=== PATIENT | female | born 1975 | race Asian ===

== ENCOUNTER 2019-03-25 12:30 | Emergency (ER) | payer OTHER ==
[2019-03-25 13:00] VITALS: BP 126/90; PULSE 77; TEMP 98.1; BMI 23.0
[2019-03-25] MEDS ORDERED: LIDOCAINE HCL 2% (20ML MULTI-DOSE VIAL) ONE (13:15)
--- NOTE | 2019-03-25 13:41 | PDOC ---
History of Present Illness - General Chief Complaint: Laceration Stated Complaint: LACERATION - History of Present Illness Initial Comments: 03/25/19 13:45 cut r wrist on glass Timing/Duration: reports: just prior to arrival Severity: Yes: moderate Location: reports: hands Modifying Factors: worse with: antihistamine, calamine lotion, prednisone Associated Symptoms: reports: denies symptoms Past History - Past Medical History Allergies/Adverse Reactions: Allergies Allergy/AdvReac Type Severity Reaction Status Date / Time No Known Allergies Allergy Verified 03/25/19 12:51 Home Medications: Ambulatory Orders Aspirin [Aspirin EC] 81 mg PO DAILY 03/25/19 Fenofibrate [Lipofen] 160 mg PO DAILY 03/25/19 Losartan/Hydrochlorothiazide [Losartan-Hctz 50-12.5 mg Tab] 1 each PO DAILY Metoprolol Succinate [Toprol Xl -] 25 mg PO DAILY 03/25/19 COPD: No HTN: Yes Hypercholesterolemia: Yes - Psycho Social/Smoking Cessation Hx Smoking History: Never smoked Hx Alcohol Use: No Drug/Substance Use Hx: No Review of Systems - Review of Systems All Other Systems: Reviewed and Negative *Physical Exam - Vital Signs Last Vital Signs Temp Pulse Resp BP Pulse Ox 98.1 F 77 15 126/90 100 03/25/19 12:39 03/25/19 12:39 03/25/19 12:39 03/25/19 12:39 03/25/19 12:39 - Physical Exam General Appearance: Yes: Nourished, Appropriately Dressed HEENT: positive: Normal Voice Respiratory/Chest: positive: Normal Breath Sounds Neurologic: positive: Other (7 cm laceration r wrist) Procedures - Laceration/Wound Repair Right Volar Wrist Wound Length: 5.0 to 7.5 cm Wound Explored: clean Wound's Depth, Shape: irregular, flap Amount of Anesthetic (ccs): 3 Wound Debrided: minimal Wound Repaired With: Sutures Suture Size/Type: 5:0 Number of Sutures: 4 Sterile Dressing Applied: Yes Medical Decision Making - Medical Decision Making 03/25/19 13:47 lac repaired tetanus utd Discharge - Discharge Information Problems reviewed: Yes Clinical Impression/Diagnosis: Laceration Condition: Good - Admission No - Follow up/Referral Referrals: Saud Ayala MD [Primary Care Provider] - - Patient Discharge Instructions Patient Printed Discharge Instructions: DI for Laceration Repair Additional Instructions: Stitches out 03/31 - Post Discharge Activity
== END 2019-03-25 13:45 | disposition home or self-care (01) ==
LOC: FER 12:30
PROC: 0HQFXZZ Repair Right Hand Skin, External Approach (ICD-10-PCS; principal; 2019-03-25)
DX: S61.511A Laceration without foreign body of right wrist, initial encounter (principal); W25.XXXA Contact with sharp glass, initial encounter; Y93.9 Activity, unspecified; Y92.9 Unspecified place or not applicable; I10 Essential (primary) hypertension; E78.00 Pure hypercholesterolemia, unspecified; Z79.82 Long term (current) use of aspirin
CPT/HCPCS: 99282-25

== ENCOUNTER 2021-11-28 08:28 | Day surgery (SDC) | payer BC ==
[2021-11-25 15:50] VITALS: BMI 24.7
[2021-11-28] MEDS ORDERED: PROPOFOL 60 ML ONE (09:36)
[2021-11-28 11:10] VITALS: RESP 16; TEMP 97.9
[2021-11-28 11:16] VITALS: BP 124/73; PULSE 65
== END 2021-11-28 10:55 | disposition home or self-care (01) ==
LOC: FASU-ENDO 08:28
PROVIDERS: ATTEND Internal Medicine Gastroenterology
PROC: 0DB98ZX Excision of Duodenum, Via Natural or Artificial Opening Endoscopic, Diagnostic (ICD-10-PCS; 2021-11-28)
PROC: 0DB78ZX Excision of Stomach, Pylorus, Via Natural or Artificial Opening Endoscopic, Diagnostic (ICD-10-PCS; 2021-11-28)
PROC: 0DJD8ZZ Inspection of Lower Intestinal Tract, Via Natural or Artificial Opening Endoscopic (ICD-10-PCS; principal; 2021-11-28 09:37)
DX: Z12.11 Encounter for screening for malignant neoplasm of colon (principal); K29.70 Gastritis, unspecified, without bleeding
CPT/HCPCS: 84703; 88305-TC; 88342-TC